=== PATIENT | male | born 1975 | race Two or more races ===

== ENCOUNTER 2020-08-11 10:43 | Emergency (ER) | payer OTHER ==
[~2020-08-11] VITALS: Ht 165.1 cm; Wt 58.9 kg
[2020-08-11 14:02] VITALS: BP 124/81
== END 2020-08-11 16:51 | disposition home or self-care (01) ==
LOC: ER 10:43
DX: U07.1 COVID-19 (principal); I10 Essential (primary) hypertension
CPT/HCPCS: 71045; 87635; 93005; 99285